=== PATIENT | male | born 1985 | race Caucasian/White ===

== ENCOUNTER 2019-11-30 20:32 | Emergency (ER) | payer MEDICAID, SELFPAY ==
[~2019-11-30] VITALS: Ht 165.1 cm; Wt 77.1 kg
[2019-11-30 20:40] VITALS: BP 136/84
[2019-11-30 21:10] VITALS: BP 136/84
== END 2019-11-30 21:10 | disposition home or self-care (01) ==
LOC: EEVIPCON 20:32 → MED 20:32
DX: U07.1 COVID-19 (principal); R05 Cough; R50.9 Fever, unspecified; R51 Headache
CPT/HCPCS: 99283; U0003